=== PATIENT | male | born 2000 | race Caucasian/White ===

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

== ENCOUNTER 2023-03-30 13:22 | Inpatient (IN) ==
[2023-03-30 14:16] LABS: Basophils # (auto) 0.04 K/uL (0.00-0.20); Basophils % (auto) 0.3 %; Eosinophils # (auto) 0.03 K/uL (0.00-0.50); Eosinophils % (auto) 0.2 %; Hematocrit (blood only) 42.8 % (42.0-52.0); Hemoglobin 15.6 g/dl (14.0-18.0); Immature Granulocytes # (auto) 0.04 K/uL (0.01-0.20); Immature Granulocytes % (auto) 0.3 %; Lymphocytes # (auto) 1.94 K/uL (1.20-3.40); Lymphocytes % (auto) 15.3 %; Mean Corpuscular Hemoglobin 31.6 pg (25.0-34.0); Mean Corpuscular Hgb Conc 36.4 g/dL (32.0-36.0); Mean Corpuscular Volume 86.8 fL (80.0-100.0); Mean Platelet Volume 9.1 fL (9.4-12.4); Monocytes # (auto) 0.89 K/uL (0.11-0.59); Neutrophils # (auto) 9.72 K/uL (1.40-6.50); Neutrophils % (auto) 76.9 %; Platelet Count 317 K/uL (130-400); RDW Coefficient of Variation 12.3 % (11.5-14.5); RDW Standard Deviation 39.1 fL (36.4-46.3); Red Blood Count 4.93 M/uL (4.70-6.10); White Blood Count 12.66 K/ul (4.8-10.8)
--- NOTE | 2023-03-30 14:28 | Emergency Department Note ---
Impression & Plan Suicidal ideation ED Provider Note NAME: NAYLA BURGESS AGE: 22 SEX: M : 2000 ARRIVES VIA: Walk-In INFORMANT: Patient ED PROVIDER(S): Benitez Fernandez DO CHIEF COMPLAINT: Suicidal ideations HPI: Patient is a 22-year-old male who presents to the ER for suicidal thoughts. He notes that this has been going on and getting worse over the past several weeks. He notes he does not believe he can trust himself anymore. He thinks of suicide multiple times a day. He notes these are generally thoughts of opportunity in regards to grabbing a gun to shoot himself. When he sees a tall building he thinks of jumping off of it. He today has been thinking about walking in front of traffic. He discussed with his family and he was referred in. He denies any homicidal ideations or auditory hallucinations. No visual hallucinations. He feels hopeless. He does not feel as though anyone will miss him. Additional history provided by parents who are present at bedside who believe that he needs inpatient treatment. ADDITIONAL HISTORY OBTAINED: Per HPI Chronic Medical/Social Conditions Affecting Care: Per HPI PAST MEDICAL HISTORY:See Below PAST SURGICAL HISTORY:See Below FAMILY HISTORY:See Below SOCIAL HISTORY:See Below HOME MEDICATIONS:See Below ALLERGIES:See Below VITALS:See Below PHYSICAL EXAMINATION: GENERAL: Sitting up in bed, alert, well appearing, well nourished, no distress, non-toxic EYE EXAM: normal conjunctiva. PERRL and EOM's grossly intact. OROPHARYNX: mucous membranes are moist NECK: supple, no nuchal rigidity, no adenopathy, non-tender LUNGS: Clear to auscultation. Normal chest wall mechanics HEART: no murmurs, S1 normal and S2 normal ABDOMEN: abdomen soft, non-tender, normo-active bowel sounds, no masses, no rebound or guarding. UPPER EXTREMITIES: upper extremities are grossly normal. LOWER EXTREMITIES: No pitting edema. NEURO EXAM: Normal sensorium, cranial nerves II-XII grossly intact, normal speech, no gross weakness of arms, no gross weakness of legs. MEDICAL DECISION MAKING: Patient is a 22-year-old male who presents ER for above-stated complaint. Blood work was obtained and showed a mild leukocytosis of 12.6. No significant anemia. BMP along with LFTs bilirubin and TSH was unremarkable. UA was clean. Tox was negative with exception of marijuana. Alcohol negative. COVID- negative. Patient was discussed with our psychiatric rn intensive care unit. Seen and evaluated. Referred to 3 S. and patient was admitted to our psychiatric unit. Consults/Care Managements Discussions: Per MDM Triage Nursing notes reviewed. Limited review of prior medical records performed Vital Signs: reviewed and remarkable for no significant abnormalities Differential diagnosis: Mood disorder, infection, hypoglycemia, electrolyte abnormalities, cardiac sources, intracerebral event, toxicologic, trauma, neurologic, as well as other pathologies. ER treatment provided: See below Diagnostics interpreted by me include EKG and cardiac monitoring as listed below: -ECG: none -Laboratory studies:Interpreted by me as stated above in MDM and shown below. Imaging studies: Xrays: As interpreted by me:none CTs show: none Procedures:none Critical Care: None Past Med/Surg History Social History Smoking Status: Never smoker Feels Safe at Home: Yes Gender Identity: Male Allergies Allergies Allergy/AdvReac Type Severity Reaction Status Date / Time No Known Allergies Allergy Unverified 12/29/16 16:30 Home Meds Home Medications Medication Instructions Recorded Confirmed citalopram 40 mg tablet (Celexa) 40 mg PO DAILY 03/30/23 03/30/23 Results & Data (ED) Vital Signs Vital Signs - 24 hr 03/30/23 13:41 03/30/23 18:43 Temperature 36.6 C Temperature Source Temporal Artery Scan Pulse Rate 73 Respiratory Rate 20 Respiratory Effort / Characteristics Non-Labored Respiratory Depth Normal Blood Pressure 134/83 Blood Pressure Mean 100 Pulse Oximetry 98 Oxygen Delivery Method Room Air Room Air Sepsis Recent Fever Within 48 Hours No Sepsis New/Unexplained Change in Mental Status No Sepsis Action Taken by Nursing No Action Required Laboratory Data 03/30/23 14:00 03/30/23 14:00 Lab Results 03/30/23 03/30/23 03/30/23 Range/Units 13:50 14:00 14:05 WBC 12.66 H (4.8-10.8) K/ul RBC 4.93 (4.70-6.10) M/uL Hgb 15.6 (14.0-18.0) g/dl Hct 42.8 (42.0-52.0) % MCV 86.8 (80.0-100.0) fL MCH 31.6 (25.0-34.0) pg MCHC 36.4 H (32.0-36.0) g/dL RDW Std Deviation 39.1 (36.4-46.3) fL RDW Coeff of Krupa 12.3 (11.5-14.5) % Plt Count 317 (130-400) K/uL MPV 9.1 L (9.4-12.4) fL Immature Gran % (Auto) 0.3 % Neut % (Auto) 76.9 % Lymph % (Auto) 15.3 % [place] % (Auto) 7.0 % Eos % (Auto) 0.2 % Baso % (Auto) 0.3 % Neut # (Auto) 9.72 H (1.40-6.50) K/uL Lymph # (Auto) 1.94 (1.20-3.40) K/uL [place] # (Auto) 0.89 H (0.11-0.59) K/uL Eos # (Auto) 0.03 (0.00-0.50) K/uL Baso # (Auto) 0.04 (0.00-0.20) K/uL Immature Gran # (Auto) 0.04 (0.01-0.20) K/uL Sodium 139 (136-145) mmol/L Potassium 3.6 (3.5-5.1) mmol/L Chloride 104 (98-107) mmol/L Carbon Dioxide 27 (21-32) mmol/L Anion Gap 8 (3-11) BUN 11 (6-23) mg/dl Creatinine 0.83 (0.6-1.4) mg/dl Est Cr Clr Drug Dosing 133.5 ml/min Est GFR ( Amer) 146.8 ml/min Est GFR (Non-Af Amer) 126.7 ml/min BUN/Creatinine Ratio 13.3 (10-20) Glucose 91 (70-99(Fasting)) mg/dl Calcium 9.9 (8.6-10.3) mg/dl Total Bilirubin 0.9 (0.2-1.0) mg/dl AST 13 (13-39) U/L ALT 10 (7-52) U/L Alkaline Phosphatase 72 (34-104) U/L Total Protein 8.2 (6.0-8.3) gm/dl Albumin 5.1 H (3.4-5.0) gm/dl Globulin 3.1 (2.5-4.0) gm/dl Albumin/Globulin Ratio 1.6 (0.9-2) TSH 0.937 (0.300-4.500) uIu/ml Urine Color Yellow Urine Appearance Clear (Clear) Urine pH 5.5 (4.5-7.5) Ur Specific [place] 1.020 (1.000-1.030) Urine Protein Negative (Negative) Urine Glucose (UA) Negative (Negative) Urine Ketones Negative (Negative) Urine Blood Negative (Negative) Urine Nitrite Negative (Negative) Urine Bilirubin Negative (Negative) Urine Urobilinogen Negative (Negative) Ur Leukocyte Esterase Negative (Negative) Salicylates < 3.0 L (3.0-30) mg/dl Urine Opiates Screen Neg (Neg) Ur Methadone, Qual Neg (Neg) Acetaminophen < 3 L (10-30) ug/ml Urine Barbiturates Neg (Neg) Ur Phencyclidine (PCP) Neg (Neg) U Amphetamin/Meth Scrn Neg (Neg) MDMA (Ecstasy) Screen Neg (Neg) U Benzodiazepines Scrn Neg (Neg) Ur Cocaine Metabolite Neg (Neg) U Marijuana (THC) Screen Pos H (Neg) Ethyl Alcohol mg/dL < 10.0 (<10.0) mg/dl SARS-CoV-2, RNA, NAAT NEGATIVE (NEGATIVE) Discharge Plan Visit Data Chief Complaint: Mental Health Evaluation Stated Complaint: SUICIDAL THOUGHTS ED Provider: Benitez Fernandez Discharge Problem: Suicidal ideation Discharge Instructions Interventions: ED Discharge Assessment Last Done: 03/30/23 18:43 Forms Stand Alone Forms: [facility], Suicide Prevention Resources Prescriptions Prescriptions: No Action citalopram [Celexa] 40 mg tablet 40 mg PO DAILY Referrals Referrals: Brayan Blackwood, [Primary Care Provider] -
[2023-03-30 14:34] LABS: Acetaminophen < 3 ug/ml (10-30); Salicylate < 3.0 mg/dl (3.0-30)
[2023-03-30 14:37] LABS: Appearance Urine Clear (Clear); Bilirubin Urine Negative (Negative); Blood Urine Negative (Negative); Color Urine Yellow; Glucose Urine UA Negative (Negative); Ketones Urine Negative (Negative); Leukocyte Esterase Urine Negative (Negative); Nitrite Urine Negative (Negative); Protein Urine Negative (Negative); Urobilinogen Urine Negative (Negative); pH Urine 5.5 (4.5-7.5)
[2023-03-30 14:38] LABS: Amphetamines+Metham, Urine Neg (Neg); Barbiturates, Urine Neg (Neg); Benzodiazepine, Urine Neg (Neg); Cocaine, Urine Neg (Neg); MDMA (Ecstacy), Urine Neg (Neg); Marijuana, Urine Pos (Neg); Methadone, Urine Neg (Neg); Opiate, Urine Neg (Neg); Phencyclidine, Urine Neg (Neg)
[2023-03-30 14:38] LABS: Albumin Globulin Ratio 1.6 (0.9-2); Albumin Level 5.1 gm/dl (3.4-5.0); BUN Creatinine Ratio 13.3 (10-20); Bilirubin,Total 0.9 mg/dl (0.2-1.0); Calcium 9.9 mg/dl (8.6-10.3); Creatinine Clr Calc Pharmacy 133.5 ml/min; Est GFR (African American) 146.8 ml/min; Est GFR (Non-African American) 126.7 ml/min; Globulin 3.1 gm/dl (2.5-4.0); Potassium 3.6 mmol/L (3.5-5.1); Total Protein 8.2 gm/dl (6.0-8.3)
[2023-03-30 14:52] LABS: Thyroid Stimulating Hormone 0.937 uIu/ml (0.300-4.500)
[2023-03-30] MEDS ORDERED: SODIUM CHLORIDE 0.65% NA SOLN 45 ML (OCEAN) PRN (18:53)
[2023-03-30] MEDS ORDERED: hydrOXYzine HCl 25 MG TAB PO PRN ×2 (18:53)
[2023-03-30] MEDS ORDERED: MAGNESIUM HYDROXIDE SUSP 30 ML UDC PO PRN (18:53)
[2023-03-30] MEDS ORDERED: BISMUTH SUBSALICYLATE LIQD 236 ML PO PRN (18:53)
[2023-03-30] MEDS ORDERED: ACETAMINOPHEN 325 MG TAB PO PRN (18:53)
[2023-03-30] MEDS ORDERED: ALUMINUM/MAGNESIUM SUSP 30 ML UDC PO PRN (18:53)
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
[2023-03-31] MEDS ORDERED: traZODone HCL 50 MG TAB PO PRN (11:37)
[2023-03-31] MEDS: buPROPion XL 150 MG TABCR PO SCH (11:50)
[2023-03-31 12:38] LABS: Folate (Folic Acid),Ser orPlas > 22.30 ng/ml (>5.38)
[2023-03-31 12:39] LABS: Vitamin B12 587 pg/ml (180-914)
[2023-03-31] MEDS ORDERED: traZODone HCL 50 MG TAB PO SCH (22:00)
[2023-04-01] MEDS: buPROPion XL 150 MG TABCR PO SCH (09:05)
--- NOTE | 2023-04-01 09:22 | Psychiatric Progress Note ---
Date of Service April 01, 2023 Impression / Recommendations Impression 22 y/o M with history of depression and ADHD. Currently he meets diagnostic criteria for recurrent major depression, moderate. He is psychiatrically unstable, with recurrent intrusive suicidal thoughts, and requires psychiatric admission for safety, stabilization, and medication adjustment. 03/31/2023: All of the additional labs ordered yesterday (vitamin B12 level, folic acid level, 25-OH vitamin D level, ESR) were within normal limits. Slept nearly 9 hours after having been given trazodone 50 mg at HS, but says he woke several times. He was able to get back to sleep faster than before. Discussed increasing HS trazodone in an attempt to eliminate the middle awakenings. Pt attributes no adverse effects to bupropion thus far, having now received 2 doses. Discussed increasing to 300 mg tomorrow, which he'd like to do. 03/30/2023: Pt has been on an unsatisfactory trial in low-dose citalopram 20 mg daily that was recently increased to 40 mg daily (though he says he hasn't actually started the higher dose yet). He did not like that stimulants used for ADHD made him feel wound up. Discussed possibility that bupropion might help with ADHD symptoms and that it might help more with anhedonia and amotivation than an SSRI. Risks and benefits of, and alternatives to, the use of bupropion (Wellbutrin) XL for Major Depression and ADHD symptoms were reviewed. This discussion included but was not limited to issues known potentially to be associated with use of such medication, especially at high doses or with longer use, including irritability, insomnia, sedation, weight gain, GI side effects. Discussed the known elevated risk of seizures at doses of 600 mg or more and the consequent need to minimize the chance of double-dosing, such as by use of a pill reminder. The patient agreed to start a trial of bupropion XL. Discussed use of trazodone for insomnia given his feeling increasingly bothered by this. Risks and benefits of, and alternatives to, the use of trazodone for insomnia symptoms were reviewed. This discussion included but was not limited to issues known potentially to be associated with use of such medication, especially at high doses or with longer use, including daytime, sedation, GI side effects, or headaches. Discussed the known rare risk of priapism. The patient agreed to start a trial of trazodone. (1) Moderately severe recurrent major depression: (2) ADHD (attention deficit hyperactivity disorder): Plan 03/31/2023: * increase bupropion XL to 300 mg tomorrow * increase trazodone to 100 mg QHS 03/30/2023: The patient was admitted to the [facility] ([facility]) on q15 minute checks (behavioral with suicide precautions) for safety.The patient will participate in group, recreational, and milieu therapies and will be offered additional individual and family sessions as clinically appropriate. * stop citalopram (taper not likely necessary given low dose) * start bupropion XL 150 mg QAM * start trazodone 50 mg QHS with repeat of 50 mg if still awake within 1 hour * In addition to the screening labs ordered in the ED, will order vitamin B12 level, folic acid level, 25-OH vitamin D level, ESR to rule out conditions more pertinent to psychiatric symptoms. Inventory Assets Strengths: has local supports, voluntary, good insight, intelligent, employed Needs: safety and stabilization, medication adjustment, additional coping skills, increased outpatient services Suicide Risk Level Suicide Risk Level: High-Moderate (q15 min suicide checks) (intrusive suicidal thoughts, feels safe here) Risk Factors Assessment Male: Yes : Yes Do You Have Access To A Gun?: No Health Problems: No Mental Health Diagnoses: Yes Substance Use Disorders: No Previous Attempt: No Previous Psychiatric Hospitalization: No Hopelessness: Yes Protective Factors Assessment Restoration Beliefs: No : No Responsible for Young Children: No Employed: Yes (Fulltime; [employer]) Good Rapport with Provider: Yes Interval History Identifying Information NAYLA BURGESS is a 22-year-old M who currently lives in [facility] in a house with his parents and 6 siblings, has a history of depression and ADHD, and was admitted on 03/30/23 18:50 on a 201 voluntary commitment for suicidal thoughts. Chief Complaint "Still having dark thoughts". Review of Systems Sleep Information Total Hours of Sleep: 8.45 Sleep Comments: Pt given scheduled Trazadone 50mg at HS Meal Information Percent Meal Consumed - Breakfast: 100 Percent Meal Consumed - Lunch: 95 Percent Meal Consumed - Dinner: 15 Subjective Subjective The patient was seen and assessed and interval progress reviewed in a multidisciplinary team meeting with the treatment team. For details, see the "Impression" section. Overall I spent a total of 39 minutes for this inpatient follow-up including r eview of chart records, review of test results, direct evaluation of the patient [id number], counseling the patient, medication education with the patient, risk assessment, discussion during interdisciplinary treatment rounds, and documentation in the electronic health record. Physical Exam Psychiatric Orientation: alert, oriented to person, oriented to place, oriented to time and cooperative Apperance: appropriately dressed, appropriately groomed and appeared stated age Eye Contact: + fair eye contact Speech: normal rate/rhythm/volume of speech Affect: + constricted affect Mood: + depressed mood Thought Process: linear/logical thought process and thought association intact Thought Content: reality based without delusions, + hopelessness and + self deprecation Suicidal Thoughts: denies suicidal plan and denies suicidal intent; + reports suicidal thoughts Homicidal Thoughts: denies homicidal thoughts Hallucinations: no auditory hallucinations and no visual hallucinations Cognition: recent memory grossly intact, remote memory grossly intact, attention grossly intact and language grossly intact Estimated Intelligence: + above average estimated intelligence Insight: + fair insight Judgment: + fair judgement Vital Signs (Past 24 Hours) Last Vital Signs Temp 36.9 C 04/01/23 06:32 Pulse 58 L 04/01/23 06:32 Resp 16 04/01/23 06:32 BP 101/66 04/01/23 06:32 Pulse Ox 98 03/30/23 13:41 O2 Del Method Room Air 03/30/23 18:43 Results & Data ([facility]) Laboratory Results Laboratory Results - last 24 hr 03/31/23 11:41 ESR 2 Vitamin B12 587 25-OH Vitamin D Total 20.5 Folate > 22.30 Current Inpatient Medications Current Inpatient Medications: Current Inpatient Medications Acetaminophen (Acetaminophen 325 Mg Tab) 650 mg PO Q4H PRN PRN Reason: Headache or Minor Fever Stop: 04/29/23 18:52 Al Hydrox/Mg Hydrox/Simethicone (Aluminum/Magnesium Susp 30 Ml Udc) 30 ml PO Q4H PRN PRN Reason: GI Upset Stop: 04/29/23 18:52 Bismuth Subsalicylate (Bismuth Subsalicylate Liqd 236 Ml) 15 ml PO PRN PRN PRN Reason: Loose Stool Stop: 04/29/23 18:52 Bupropion HCl (Bupropion Xl 150 Mg Tabcr) 150 mg PO QAM CORRINA Stop: 04/30/23 11:59 Last Admin: 04/01/23 09:05 Dose: 150 mg Hydroxyzine HCl (Hydroxyzine Hcl 25 Mg Tab) 50 mg PO HSZ PRN PRN Reason: Insomnia Stop: 04/29/23 18:52 Hydroxyzine HCl (Hydroxyzine Hcl 25 Mg Tab) 25 mg PO Q4H PRN PRN Reason: Anxiety Stop: 04/29/23 18:52 Last Admin: 03/31/23 17:41 Dose: 25 mg Magnesium Hydroxide (Magnesium Hydroxide Susp 30 Ml Udc) 30 ml PO DAILY PRN PRN Reason: Constipation Stop: 04/29/23 18:52 Sodium Chloride (Sodium Chloride 0.65% Na Soln 45 Ml ([place])) 1 - 2 sprays NA PRN PRN PRN Reason: Nasal Dryness/Congestion Stop: 04/29/23 18:52 Trazodone HCl (Trazodone Hcl 50 Mg Tab) 50 mg PO HS CORRINA Stop: 04/30/23 21:59 Last Admin: 03/31/23 20:08 Dose: 50 mg Trazodone HCl (Trazodone Hcl 50 Mg Tab) 50 mg PO HS PRN PRN Reason: if still awake within 1 hour of initial dose Stop: 04/30/23 11:36 Mental Health & Subst Abuse Tx Therapist Name of Therapist: None Cylinder Die Machine Helper Name of Cylinder Die Machine Helper: None Post Discharge Appointments Primary Care Physician Name Of Family Doctor/PCP: Dr Blackwood; [facility] in [place] (2) ADHD (attention deficit hyperactivity disorder) Attention deficit-hyperactivity disorder type: combined inattentive- hyperactive Qualified Code(s): 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
[2023-04-01] MEDS ORDERED: traZODone HCL 100 MG TAB PO SCH (22:00)
[2023-04-02] MEDS: buPROPion XL 300 MG TABCR PO SCH (08:39)
--- NOTE | 2023-04-02 12:22 | Psychiatric Progress Note ---
Date of Service April 02, 2023 Impression / Recommendations Impression 22 y/o M with history of depression and ADHD. Currently he meets diagnostic criteria for recurrent major depression, moderate. He is psychiatrically unstable, with recurrent intrusive suicidal thoughts, and requires psychiatric admission for safety, stabilization, and medication adjustment. 04/02/2023: Presents with brighter affect, reports that his "mood is definitely better" and that he's "had no suicidal thoughts since late Friday night". Reports fewer middle awakenings last night, but says it took longer to fall back asleep. He would like to try increasing trazodone with a goal of eliminating the middle awakenings. Reports no worsening and attributes no side effects to the increased bupropion. Says he's "been able to focus much better" and attributes this to the bupropion. Speaks of his plan to move out of his crowded family home (where he has a small room carved out of the poorly-heated basement) to an apartment with a co-worker in about 3 weeks. The coworker is "officially" his supervisor [employer], but he's been trained to fill in for her if she's absent. They both work the same shift so could carpool. The apartment "is a 3 bedroom, 2 bath" but one of the bedrooms is a loft area that he figures they could use as shared space. 04/01/2023: All of the additional labs ordered yesterday (vitamin B12 level, folic acid level, 25-OH vitamin D level, ESR) were within normal limits. Slept nearly 9 hours after having been given trazodone 50 mg at HS, but says he woke several times. He was able to get back to sleep faster than before. Discussed increasing HS trazodone in an attempt to eliminate the middle awakenings. Pt attributes no adverse effects to bupropion thus far, having now received 2 doses. Discussed increasing to 300 mg tomorrow, which he'd like to do. 03/31/2023: Pt has been on an unsatisfactory trial in low-dose citalopram 20 mg daily that was recently increased to 40 mg daily (though he says he hasn't actually started the higher dose yet). He did not like that stimulants used for ADHD made him feel wound up. Discussed possibility that bupropion might help with ADHD symptoms and that it might help more with anhedonia and amotivation than an SSRI. Risks and benefits of, and alternatives to, the use of bupropion (Wellbutrin) XL for Major Depression and ADHD symptoms were reviewed. This discussion included but was not limited to issues known potentially to be associated with use of such medication, especially at high doses or with longer use, including irritability, insomnia, sedation, weight gain, GI side effects. Discussed the known elevated risk of seizures at doses of 600 mg or more and the consequent need to minimize the chance of double-dosing, such as by use of a pill reminder. The patient agreed to start a trial of bupropion XL. Discussed use of trazodone for insomnia given his feeling increasingly bothered by this. Risks and benefits of, and alternatives to, the use of trazodone for insomnia symptoms were reviewed. This discussion included but was not limited to issues known potentially to be associated with use of such medication, especially at high doses or with longer use, including daytime, sedation, GI side effects, or headaches. Discussed the known rare risk of priapism. The patient agreed to start a trial of trazodone. (1) Moderately severe recurrent major depression: (2) ADHD (attention deficit hyperactivity disorder): Plan 04/02/2023: * continue bupropion XL 300 mg daily * increase trazodone to 150 mg QHS 04/01/2023: * increase bupropion XL to 300 mg tomorrow * increase trazodone to 100 mg QHS 03/31/2023: The patient was admitted to the [facility]) on q15 minute checks (behavioral with suicide precautions) for safety.The patient will participate in group, recreational, and milieu therapies and will be offered additional individual and family sessions as clinically appropriate. * stop citalopram (taper not likely necessary given low dose) * start bupropion XL 150 mg QAM * start trazodone 50 mg QHS with repeat of 50 mg if still awake within 1 hour * In addition to the screening labs ordered in the ED, will order vitamin B12 level, folic acid level, 25-OH vitamin D level, ESR to rule out conditions more pertinent to psychiatric symptoms. Inventory Assets Strengths: has local supports, voluntary, good insight, intelligent, employed Needs: safety and stabilization, medication adjustment, additional coping skills, increased outpatient services Suicide Risk Level Suicide Risk Level: High-Moderate (q15 min suicide checks) (intrusive suicidal thoughts, feels safe here) Risk Factors Assessment Male: Yes : Yes Do You Have Access To A Gun?: No Health Problems: No Mental Health Diagnoses: Yes Substance Use Disorders: No Previous Attempt: No Previous Psychiatric Hospitalization: No Hopelessness: Yes Protective Factors Assessment Restorationism Beliefs: No : No Responsible for Young Children: No Employed: Yes (Fulltime; [employer] Good Rapport with Provider: Yes Interval History Identifying Information NAYLA BURGESS is a 22-year-old M who currently lives in [facility] in a house with his parents and 6 siblings, has a history of depression and ADHD, and was admitted on 03/30/23 18:50 on a 201 voluntary commitment for suicidal thoughts. Chief Complaint "I'm definitely better". Review of Systems Sleep Information Total Hours of Sleep: 7.25 Sleep Comments: Pt given scheduled Trazodone 100mg at HS Meal Information Percent Meal Consumed - Breakfast: 100 Percent Meal Consumed - Lunch: 100 Percent Meal Consumed - Dinner: 100 Subjective Subjective The patient was seen and assessed and interval progress reviewed in a multidisciplinary team meeting with the treatment team. For details, see the "Impression" section. Overall I spent a total of 36 minutes for this inpatient follow-up including review of chart records, direct evaluation of the patient [id number], counseling the patient, reconciling and ordering medication, medication education with the patient, risk assessment, discussion during interdisciplinary treatment rounds, and documentation in the electronic health record. Physical Exam Psychiatric Orientation: alert, oriented to person, oriented to place, oriented to time and cooperative Apperance: appropriately dressed, appropriately groomed and appeared stated age Eye Contact: + fair eye contact Speech: normal rate/rhythm/volume of speech Affect: + constricted affect Mood: + dysphoric mood Thought Process: linear/logical thought process and thought association intact Thought Content: reality based without delusions and + self deprecation Suicidal Thoughts: denies suicidal thoughts, denies suicidal plan and denies suicidal intent Homicidal Thoughts: denies homicidal thoughts Hallucinations: no auditory hallucinations and no visual hallucinations Cognition: recent memory grossly intact, remote memory grossly intact, attention grossly intact and language grossly intact Estimated Intelligence: + above average estimated intelligence Insight: + fair insight Judgment: + fair judgement Vital Signs (Past 24 Hours) Last Vital Signs Temp 36.4 C 04/02/23 06:00 Pulse 80 04/02/23 06:27 Resp 16 04/02/23 06:00 BP 113/63 04/02/23 06:27 Pulse Ox 98 03/30/23 13:41 O2 Del Method Room Air 03/30/23 18:43 Results & Data ([facility]) Current Inpatient Medications Current Inpatient Medications: Current Inpatient Medications Acetaminophen (Acetaminophen 325 Mg Tab) 650 mg PO Q4H PRN PRN Reason: Headache or Minor Fever Stop: 04/29/23 18:52 Al Hydrox/Mg Hydrox/Simethicone (Aluminum/Magnesium Susp 30 Ml Udc) 30 ml PO Q4H PRN PRN Reason: GI Upset Stop: 04/29/23 18:52 Bismuth Subsalicylate (Bismuth Subsalicylate Liqd 236 Ml) 15 ml PO PRN PRN PRN Reason: Loose Stool Stop: 04/29/23 18:52 Bupropion HCl (Bupropion Xl 300 Mg Tabcr) 300 mg PO QAM CORRINA Stop: 05/02/23 08:59 Last Admin: 04/02/23 08:39 Dose: 300 mg Hydroxyzine HCl (Hydroxyzine Hcl 25 Mg Tab) 50 mg PO HSZ PRN PRN Reason: Insomnia Stop: 04/29/23 18:52 Hydroxyzine HCl (Hydroxyzine Hcl 25 Mg Tab) 25 mg PO Q4H PRN PRN Reason: Anxiety Stop: 04/29/23 18:52 Last Admin: 03/31/23 17:41 Dose: 25 mg Magnesium Hydroxide (Magnesium Hydroxide Susp 30 Ml Udc) 30 ml PO DAILY PRN PRN Reason: Constipation Stop: 04/29/23 18:52 Sodium Chloride (Sodium Chloride 0.65% Na Soln 45 Ml ([place])) 1 - 2 sprays NA PRN PRN PRN Reason: Nasal Dryness/Congestion Stop: 04/29/23 18:52 Trazodone HCl (Trazodone Hcl 50 Mg Tab) 50 mg PO HS PRN PRN Reason: if still awake within 1 hour of initial dose Stop: 04/30/23 11:36 Trazodone HCl (Trazodone Hcl 50 Mg Tab) 150 mg PO HS CORRINA Stop: 05/02/23 21:59 Mental Health & Subst Abuse Tx Therapist Name of Therapist: None Senior Counsel Commercial Name of Senior Counsel Commercial: None Post Discharge Appointments Primary Care Physician Name Of Family Doctor/PCP: Dr Blackwood; [facility] [place] (2) ADHD (attention deficit hyperactivity disorder) Attention deficit-hyperactivity disorder type: combined inattentive- hyperactive Qualified Code(s): 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
[2023-04-02] MEDS: traZODone HCL 50 MG TAB PO SCH (20:18)
[2023-04-03] MEDS: buPROPion XL 300 MG TABCR PO SCH (08:41)
--- NOTE | 2023-04-03 09:17 | Psychiatric Progress Note ---
Date of Service April 03, 2023 Impression / Recommendations Impression 22 y/o M with history of depression and ADHD. Currently he meets diagnostic criteria for recurrent major depression, moderate. He is psychiatrically unstable, with recurrent intrusive suicidal thoughts, and requires psychiatric admission for safety, stabilization, and medication adjustment. 04/03/2023: Pt is not sure the 150 mg trazodone was any more helpful, but notes he got a new roommate in the middle of the night. He says his mood remains "pretty good". Continues to report no suicidal thoughts. 04/02/2023: Presents with brighter affect, reports that his "mood is definitely better" and that he's "had no suicidal thoughts since late Friday night". Reports fewer middle awakenings last night, but says it took longer to fall back asleep. He would like to try increasing trazodone with a goal of eliminating the middle awakenings. Reports no worsening and attributes no side effects to the increased bupropion. Says he's "been able to focus much better" and attributes this to the bupropion. Speaks of his plan to move out of his crowded family home (where he has a small room carved out of the poorly-heated basement) to an apartment with a co-worker in about 3 weeks. The coworker is "officially" his smoke control supervisor, but he's been trained to fill in for her if she's absent. They both work the same shift so could carpool. The apartment "is a 3 bedroom, 2 bath" but one of the bedrooms is a loft area that he figures they could use as shared space. 04/01/2023: All of the additional labs ordered yesterday (vitamin B12 level, folic acid level, 25-OH vitamin D level, ESR) were within normal limits. Slept nearly 9 hours after having been given trazodone 50 mg at HS, but says he woke several times. He was able to get back to sleep faster than before. Discussed increasing HS trazodone in an attempt to eliminate the middle awakenings. Pt attributes no adverse effects to bupropion thus far, having now received 2 doses. Discussed increasing to 300 mg tomorrow, which he'd like to do. 03/31/2023: Pt has been on an unsatisfactory trial in low-dose citalopram 20 mg daily that was recently increased to 40 mg daily (though he says he hasn't actually started the higher dose yet). He did not like that stimulants used for ADHD made him feel wound up. Discussed possibility that bupropion might help with ADHD symptoms and that it might help more with anhedonia and amotivation than an SSRI. Risks and benefits of, and alternatives to, the use of bupropion (Wellbutrin) XL for Major Depression and ADHD symptoms were reviewed. This discussion included but was not limited to issues known potentially to be associated with use of such medication, especially at high doses or with longer use, including irritability, insomnia, sedation, weight gain, GI side effects. Discussed the known elevated risk of seizures at doses of 600 mg or more and the consequent need to minimize the chance of double-dosing, such as by use of a pill reminder. The patient agreed to start a trial of bupropion XL. Discussed use of trazodone for insomnia given his feeling increasingly bothered by this. Risks and benefits of, and alternatives to, the use of trazodone for insomnia symptoms were reviewed. This discussion included but was not limited to issues known potentially to be associated with use of such medication, especially at high doses or with longer use, including daytime, sedation, GI side effects, or headaches. Discussed the known rare risk of priapism. The patient agreed to start a trial of trazodone. (1) Moderately severe recurrent major depression: (2) ADHD (attention deficit hyperactivity disorder): Plan 04/03/2023: * continue bupropion XL 300 mg daily * continue trazodone to 150 mg QHS * anticipate discharge tomorrow 04/02/2023: * continue bupropion XL 300 mg daily * increase trazodone to 150 mg QHS 04/01/2023: * increase bupropion XL to 300 mg tomorrow * increase trazodone to 100 mg QHS 03/31/2023: The patient was admitted to the [facility]) on q15 minute checks (behavioral with suicide precautions) for safety.The patient will participate in group, recreational, and milieu therapies and will be offered additional individual and family sessions as clinically appropriate. * stop citalopram (taper not likely necessary given low dose) * start bupropion XL 150 mg QAM * start trazodone 50 mg QHS with repeat of 50 mg if still awake within 1 hour * In addition to the screening labs ordered in the ED, will order vitamin B12 level, folic acid level, 25-OH vitamin D level, ESR to rule out conditions more pertinent to psychiatric symptoms. Inventory Assets Strengths: has local supports, voluntary, good insight, intelligent, employed Needs: safety and stabilization, medication adjustment, additional coping skills, increased outpatient services Suicide Risk Level Suicide Risk Level: High-Moderate (q15 min suicide checks) (intrusive suicidal thoughts, feels safe here) Risk Factors Assessment Male: Yes : Yes Do You Have Access To A Gun?: No Health Problems: No Mental Health Diagnoses: Yes Substance Use Disorders: No Previous Attempt: No Previous Psychiatric Hospitalization: No Hopelessness: Yes Protective Factors Assessment Jehovah'S Witness Beliefs: No : No Responsible for Young Children: No Employed: Yes (Fulltime; [employer]) Good Rapport with Provider: Yes Interval History Identifying Information NAYLA BURGESS is a 22-year-old M who currently lives in [facility] [address] in a house with his parents and 6 siblings, has a history of depression and ADHD, and was admitted on 03/30/23 18:50 on a 201 voluntary commitment for suicidal thoughts. Chief Complaint "Pretty good". Review of Systems Sleep Information Total Hours of Sleep: 7.5 Sleep Comments: Pt receives Trazodone 150mg HS Meal Information Percent Meal Consumed - Breakfast: 100 Percent Meal Consumed - Lunch: 90 Percent Meal Consumed - Dinner: 100 Subjective Subjective The patient was seen and assessed and interval progress reviewed in a multidisciplinary team meeting with the treatment team. For details, see the "Impression" section. Overall I spent a total of 38 minutes for this inpatient follow-up including review of chart records, direct evaluation of the patient [id number], counseling the patient, medication education with the patient, risk assessment, discussion during interdisciplinary treatment rounds, and documentation in the electronic health record. Physical Exam Psychiatric Orientation: alert, oriented to person, oriented to place, oriented to time and cooperative Apperance: appropriately dressed, appropriately groomed and appeared stated age Eye Contact: + fair eye contact Speech: normal rate/rhythm/volume of speech Affect: + constricted affect Mood: + dysphoric mood Thought Process: linear/logical thought process and thought association intact Thought Content: reality based without delusions and + self deprecation Suicidal Thoughts: denies suicidal thoughts, denies suicidal plan and denies suicidal intent Homicidal Thoughts: denies homicidal thoughts Hallucinations: no auditory hallucinations and no visual hallucinations Cognition: recent memory grossly intact, remote memory grossly intact, attention grossly intact and language grossly intact Estimated Intelligence: + above average estimated intelligence Insight: + fair insight Judgment: + fair judgement Vital Signs (Past 24 Hours) Last Vital Signs Temp 35.9 C L 04/03/23 06:00 Pulse 94 H 04/03/23 06:12 Resp 16 04/03/23 06:00 BP 108/66 04/03/23 06:12 Pulse Ox 98 03/30/23 13:41 O2 Del Method Room Air 03/30/23 18:43 Results & Data ([facility]) Current Inpatient Medications Current Inpatient Medications: Current Inpatient Medications Acetaminophen (Acetaminophen 325 Mg Tab) 650 mg PO Q4H PRN PRN Reason: Headache or Minor Fever Stop: 04/29/23 18:52 Al Hydrox/Mg Hydrox/Simethicone (Aluminum/Magnesium Susp 30 Ml Udc) 30 ml PO Q4H PRN PRN Reason: GI Upset Stop: 04/29/23 18:52 Bismuth Subsalicylate (Bismuth Subsalicylate Liqd 236 Ml) 15 ml PO PRN PRN PRN Reason: Loose Stool Stop: 04/29/23 18:52 Bupropion HCl (Bupropion Xl 300 Mg Tabcr) 300 mg PO QAM CORRINA Stop: 05/02/23 08:59 Last Admin: 04/03/23 08:41 Dose: 300 mg Hydroxyzine HCl (Hydroxyzine Hcl 25 Mg Tab) 50 mg PO HSZ PRN PRN Reason: Insomnia Stop: 04/29/23 18:52 Hydroxyzine HCl (Hydroxyzine Hcl 25 Mg Tab) 25 mg PO Q4H PRN PRN Reason: Anxiety Stop: 04/29/23 18:52 Last Admin: 03/31/23 17:41 Dose: 25 mg Magnesium Hydroxide (Magnesium Hydroxide Susp 30 Ml Udc) 30 ml PO DAILY PRN PRN Reason: Constipation Stop: 04/29/23 18:52 Sodium Chloride (Sodium Chloride 0.65% Na Soln 45 Ml ([place])) 1 - 2 sprays NA PRN PRN PRN Reason: Nasal Dryness/Congestion Stop: 04/29/23 18:52 Trazodone HCl (Trazodone Hcl 50 Mg Tab) 50 mg PO HS PRN PRN Reason: if still awake within 1 hour of initial dose Stop: 04/30/23 11:36 Trazodone HCl (Trazodone Hcl 50 Mg Tab) 150 mg PO HS CORRINA Stop: 05/02/23 21:59 Last Admin: 04/02/23 20:18 Dose: 150 mg Mental Health & Subst Abuse Tx Therapist Name of Therapist: None Sales Clerk Food Name of Sales Clerk Food: None Post Discharge Appointments Primary Care Physician Name Of Family Doctor/PCP: Dr Blackwood; [address] [facility] [place] (2) ADHD (attention deficit hyperactivity disorder) Attention deficit-hyperactivity disorder type: combined inattentive- hyperactive Qualified Code(s): 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
[2023-04-03 20:42] LABS: Marijuana Quant, GCMS Urine 1135 ng/mL (<5)
[2023-04-03] MEDS: traZODone HCL 50 MG TAB PO SCH (22:06)
[2023-04-04] MEDS: buPROPion XL 300 MG TABCR PO SCH (08:54)
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
== END 2023-04-04 11:26 | disposition home or self-care (01) | DRG 885 ==
LOC: ED 13:22 → 3S 18:43
DX: Z81.8 Family history of other mental and behavioral disorders; R45.851 Suicidal ideations; F90.2 Attention-deficit hyperactivity disorder, combined type; F33.1 Major depressive disorder, recurrent, moderate

== ENCOUNTER 2023-05-21 12:10 | Inpatient (IN) ==
--- NOTE | 2023-05-21 12:33 | Emergency Department Note ---
Impression & Plan Suicidal thoughts ADMIT ED Provider Note HPI: History obtained from patient The patient is a 22-year-old male with history of anxiety/depression, ADHD, presents the emergency department with a chief complaint of suicidal thoughts. Patient states lately "I do not care about my life at all". Patient denies any plan to harm himself and denies any suicide attempts but states he is having increasing thoughts of self-harm. Patient states he was previously admitted to behavioral health earlier this year and he thought that he needed the same again secondary to the symptoms. Patient denies any recent alcohol or drug use, on arrival here to the ED the patient is hemodynamically stable, he is calm and cooperative on my exam. ROS: - Per HPI *Outpatient medications and allergy history reviewed. PE: General: Alert HEENT: Normocephalic, trachea midline Eyes: Extraocular eye movement is intact, no scleral erythema Pulmonary: Clear to auscultation bilaterally, no wheezing Cardio: Regular rate and rhythm GI: Abdomen is soft to palpation : No suprapubic tenderness MSK: No evidence of trauma or malformation of the extremities, no edema Skin: No evidence of rash Neuro: Alert, no focal deficits Psychiatric: Cooperative Medical Decision Making: Medical screening was initiated for the patient's complaint of suicidal thoughts. Lab work shows no leukocytosis, hemoglobin is normal, platelet count is normal, CMP does not show any critical findings. No critical electrolyte abnormalities are noted, TSH is normal. Urinalysis shows 1+ ketones but otherwise no evidence of any abnormalities. Drug screen is positive only for marijuana. COVID testing is negative. Patient was medically cleared for assessment, he was assessed for inpatient psychiatric care by the behavioral health unit here [facility] given his suicidal thoughts. He did tell case management that he did have a plan of either jumping into traffic or possibly obtaining a gun to kill himself. He was accepted for inpatient care. 201 was signed by myself. Patient was taken for admission to the BHU in stable condition. Consultants/Discussions held with other healthcare providers: -Case Management, Zeny Adhikari Diagnosis: 1. Suicidal thoughts, acute Disposition: 201 Admission to 3 S. Andrew Yañez DO Emergency Medicine Past Med/Surg History Medical History (Updated 05/21/23 @ 16:58 by Andrew Yañez DO) ADHD (attention deficit hyperactivity disorder) Suicidal ideation Moderately severe recurrent major depression Social History Smoking Status: Current some day smoker Preferred Language: Lithuanian Communication Ability: Effective Residential Roofer Helper Required: No Beliefs That Will Affect Care: None Feels Safe at Home: Yes Gender Identity: Male Assistive Devices: None Allergies Allergies Allergy/AdvReac Type Severity Reaction Status Date / Time No Known Allergies Allergy Unverified 12/29/16 16:30 Home Meds Home Medications Medication Instructions Recorded Confirmed bupropion HCl 300 mg 24 hr tablet, mg PO 05/21/23 extended release citalopram 20 mg tablet mg 05/21/23 citalopram 40 mg tablet mg 05/21/23 dextroamphetamine-amphetamine ER PO 05/21/23 15 mg 24hr capsule,extend release (Adderall XR) methylphenidate HCl 18 mg mg PO 05/21/23 tablet,extended release 24 hr (Concerta) trazodone 50 mg tablet mg 05/21/23 Results & Data (ED) Vital Signs Vital Signs - 24 hr 05/21/23 12:10 05/21/23 12:14 05/21/23 14:32 Temperature 36.6 C Temperature Source Temporal Artery Scan Pulse Rate 79 Pulse Rate [Finger] 76 Respiratory Rate 20 18 Respiratory Effort / Characteristics Non-Labored Spontaneous Non-Labored Spontaneous Non-Labored Spontaneous Respiratory Depth Normal Normal Normal Respiratory Pattern Regular Blood Pressure 137/72 Blood Pressure [Right Arm] 123/66 Blood Pressure Mean 93 Blood Pressure Mean [Right Arm] 85 Blood Pressure Position [Right Arm] Sitting Pulse Oximetry 98 99 Oxygen Delivery Method Room Air Room Air Sepsis Recent Fever Within 48 Hours No Sepsis New/Unexplained Change in Mental Status No Sepsis Action Taken by Nursing No Action Required Laboratory Data 05/21/23 12:32 05/21/23 12:32 Lab Results 05/21/23 05/21/23 Range/Units 12:32 14:30 WBC 8.17 (4.8-10.8) K/ul RBC 4.74 (4.70-6.10) M/uL Hgb 15.1 (14.0-18.0) g/dl Hct 40.6 L (42.0-52.0) % MCV 85.7 (80.0-100.0) fL MCH 31.9 (25.0-34.0) pg MCHC 37.2 H (32.0-36.0) g/dL RDW Std Deviation 36.9 (36.4-46.3) fL RDW Coeff of Krupa 11.8 (11.5-14.5) % Plt Count 327 (130-400) K/uL MPV 9.1 L (9.4-12.4) fL Immature Gran % (Auto) 0.2 % Neut % (Auto) 67.8 % Lymph % (Auto) 20.2 % Greenlee % (Auto) 10.8 % Eos % (Auto) 0.6 % Baso % (Auto) 0.4 % Neut # (Auto) 5.54 (1.40-6.50) K/uL Lymph # (Auto) 1.65 (1.20-3.40) K/uL Greenlee # (Auto) 0.88 H (0.11-0.59) K/uL Eos # (Auto) 0.05 (0.00-0.50) K/uL Baso # (Auto) 0.03 (0.00-0.20) K/uL Immature Gran # (Auto) 0.02 (0.01-0.20) K/uL Sodium 137 (136-145) mmol/L Potassium 4.0 (3.5-5.1) mmol/L Chloride 102 (98-107) mmol/L Carbon Dioxide 26 (21-32) mmol/L Anion Gap 9 (3-11) BUN 9 (6-23) mg/dl Creatinine 0.96 (0.6-1.4) mg/dl Est Cr Clr Drug Dosing 112.0 ml/min Est GFR ( Amer) 131.4 ml/min Est GFR (Non-Af Amer) 113.3 ml/min BUN/Creatinine Ratio 9.4 L (10-20) Glucose 93 (70-99(Fasting)) mg/dl Calcium 9.6 (8.6-10.3) mg/dl Total Bilirubin 1.3 H (0.2-1.0) mg/dl AST 13 (13-39) U/L ALT 10 (7-52) U/L Alkaline Phosphatase 73 (34-104) U/L Total Protein 8.0 (6.0-8.3) gm/dl Albumin 5.0 (3.4-5.0) gm/dl Globulin 3.0 (2.5-4.0) gm/dl Albumin/Globulin Ratio 1.7 (0.9-2) TSH 0.425 (0.300-4.500) uIu/ml Urine Color Yellow Urine Appearance Clear (Clear) Urine pH 7.0 (4.5-7.5) Ur Specific [place] 1.007 (1.000-1.030) Urine Protein Negative (Negative) Urine Glucose (UA) Negative (Negative) Urine Ketones 1+ H (Negative) Urine Blood Negative (Negative) Urine Nitrite Negative (Negative) Urine Bilirubin Negative (Negative) Urine Urobilinogen Negative (Negative) Ur Leukocyte Esterase Negative (Negative) Salicylates < 3.0 L (3.0-30) mg/dl Urine Opiates Screen Neg (Neg) Ur Methadone, Qual Neg (Neg) Acetaminophen < 3 L (10-30) ug/ml Urine Barbiturates Neg (Neg) Ur Phencyclidine (PCP) Neg (Neg) U Amphetamin/Meth Scrn Neg (Neg) MDMA (Ecstasy) Screen Neg (Neg) U Benzodiazepines Scrn Neg (Neg) Ur Cocaine Metabolite Neg (Neg) U Marijuana (THC) Screen Pos H (Neg) Ethyl Alcohol mg/dL < 10.0 (<10.0) mg/dl SARS-CoV-2, RNA, NAAT NEGATIVE (NEGATIVE) Discharge Plan Visit Data Chief Complaint: Mental Health Evaluation Stated Complaint: [facility] ED Provider: Andrew Yañez Discharge Problem: Suicidal thoughts Forms Stand Alone Forms: My [facility], Suicide Prevention Resources Prescriptions Prescriptions: No Action bupropion HCl 300 mg Tablet Extended Release 24 Hr PO citalopram 40 mg Tablet trazodone 50 mg Tablet citalopram 20 mg Tablet methylphenidate HCl [Concerta] 18 mg Tablet Extended Release 24hr PO dextroamphetamine-amphetamine [Adderall XR] 15 mg capsule,extended release 24hr PO Referrals Referrals: Brayan Blackwood, [Primary Care Provider] -
[2023-05-21 13:03] LABS: Basophils # (auto) 0.03 K/uL (0.00-0.20); Basophils % (auto) 0.4 %; Eosinophils # (auto) 0.05 K/uL (0.00-0.50); Eosinophils % (auto) 0.6 %; Hematocrit (blood only) 40.6 % (42.0-52.0); Hemoglobin 15.1 g/dl (14.0-18.0); Immature Granulocytes # (auto) 0.02 K/uL (0.01-0.20); Immature Granulocytes % (auto) 0.2 %; Lymphocytes # (auto) 1.65 K/uL (1.20-3.40); Lymphocytes % (auto) 20.2 %; Mean Corpuscular Hemoglobin 31.9 pg (25.0-34.0); Mean Corpuscular Hgb Conc 37.2 g/dL (32.0-36.0); Mean Corpuscular Volume 85.7 fL (80.0-100.0); Mean Platelet Volume 9.1 fL (9.4-12.4); Monocytes # (auto) 0.88 K/uL (0.11-0.59); Monocytes % (auto) 10.8 %; Neutrophils # (auto) 5.54 K/uL (1.40-6.50); Neutrophils % (auto) 67.8 %; Platelet Count 327 K/uL (130-400); RDW Coefficient of Variation 11.8 % (11.5-14.5); RDW Standard Deviation 36.9 fL (36.4-46.3); Red Blood Count 4.74 M/uL (4.70-6.10); White Blood Count 8.17 K/ul (4.8-10.8)
[2023-05-21 13:15] LABS: Appearance Urine Clear (Clear); Bilirubin Urine Negative (Negative); Blood Urine Negative (Negative); Color Urine Yellow; Glucose Urine UA Negative (Negative); Ketones Urine 1+ (Negative); Leukocyte Esterase Urine Negative (Negative); Nitrite Urine Negative (Negative); Protein Urine Negative (Negative); Specific Gravity Urine 1.007 (1.000-1.030); Urobilinogen Urine Negative (Negative)
[2023-05-21 13:16] LABS: Albumin Globulin Ratio 1.7 (0.9-2); BUN Creatinine Ratio 9.4 (10-20); Bilirubin,Total 1.3 mg/dl (0.2-1.0); Calcium 9.6 mg/dl (8.6-10.3); Est GFR (African American) 131.4 ml/min; Est GFR (Non-African American) 113.3 ml/min
[2023-05-21 13:22] LABS: Acetaminophen < 3 ug/ml (10-30); Salicylate < 3.0 mg/dl (3.0-30)
[2023-05-21 13:28] LABS: Thyroid Stimulating Hormone 0.425 uIu/ml (0.300-4.500)
[2023-05-21 13:42] LABS: Amphetamines+Metham, Urine Neg (Neg); Barbiturates, Urine Neg (Neg); Benzodiazepine, Urine Neg (Neg); Cocaine, Urine Neg (Neg); MDMA (Ecstacy), Urine Neg (Neg); Marijuana, Urine Pos (Neg); Methadone, Urine Neg (Neg); Opiate, Urine Neg (Neg); Phencyclidine, Urine Neg (Neg)
[2023-05-21] MEDS ORDERED: SODIUM CHLORIDE 0.65% NA SOLN 45 ML (OCEAN) PRN (17:47)
[2023-05-21] MEDS ORDERED: ALUMINUM/MAGNESIUM SUSP 30 ML UDC PO PRN (17:47)
[2023-05-21] MEDS ORDERED: hydrOXYzine HCl 25 MG TAB PO PRN (17:47)
[2023-05-21] MEDS ORDERED: MAGNESIUM HYDROXIDE SUSP 30 ML UDC PO PRN (17:47)
[2023-05-21] MEDS ORDERED: BISMUTH SUBSALICYLATE LIQD 236 ML PO PRN (17:47)
[2023-05-21] MEDS ORDERED: ACETAMINOPHEN 325 MG TAB PO PRN (17:47)
[2023-05-22] MEDS: buPROPion XL 300 MG TABCR PO SCH (08:59)
--- NOTE | 2023-05-22 10:46 | History & Physical ---
Date of Service May 22, 2023 Impression / Recommendations Impression 22 year old male with past psychiatric history of major depressive disorder who presented with increasing depresion and suicidal ideation. He also stated that he needed refills of his medication. (1) Moderately severe recurrent major depression: Plan Admit to inpatient unit. Re-start Wellbutrin. Patient knows that he will not be re-started on Trazodone so he can learn to manage his sleep cycle naturally. Participate in all milieu therapy. Suicide Risk Level Suicide Risk Level: Low (q15 min observation checks) Risk Factors Assessment Male: Yes : Yes Do You Have Access To A Gun?: No Previous Psychiatric Hospitalization: Yes Hopelessness: Yes Protective Factors Assessment Employed: Yes ([employer]) Psychiatric History Identifying Data NAYLA BURGESS is a 22-year-old M who currently lives alone, has a history of major depressive disorder and was admitted on 05/21/23 17:10 on a 201 voluntary for vague suicidal ideations . He also stated that he was out of his medication and hadn't been able to get it refilled. Chief Complaint "It's more than that". History of Present Illness Patient states that he has been mostly compliant with the outpatient treatment that he was provided on discharge. But he says that he came in because he is bored and hopeless that his life will ever get better. He says that he was very unhappy in his childhood. He says that he keeps having difficulties in accomplishing everything that he wants to do and he is tired of the struggle. He also says that when he voices his frustration, sadness, or other negative thoughts, his boss and his parents are always asking him if he wants to go to the hospital. He told me that he finally said that he wanted to go to the hospital to get them to stop bothering him. He says that is why the story he gave in the ED was very similar to the presentation that he gave in his previous visit approximately one month ago. At the time of my interview, the patient denied suicidal or homicidal ideation and showed no signs of salvador or psychosis. We did discuss at length the fact that his life as an adult is just starting out and he shouldn't compare his future to his past. He was very receptive to this discussion and I encouraged him to take advantage of the groups and milieu while he is here. I also discussed with him his medications and their l imitations. I told him that we would not be prescribing any sleep medications because I don't want him to get accustomed to taking pills for sleep. 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 Past Psychiatric History Previous Psych History: MDD Current Psychiatric Diagnosis: MDD, ADHD Outpatient Services: Patient has outpatient services that were set up after his previous hospitalizat ion. Previous Psych Admissions: recently seen here (approximately one month ago) Do You Have Access To A Gun?: No History of Previous Suicide Attempt: No Allergies Allergy/AdvReac Type Severity Reaction Status Date / Time No Known Allergies Allergy Unverified 12/29/16 16:30 Home Medications Medication Instructions Recorded Confirmed Type bupropion HCl 300 mg 24 hr tablet, 300 mg PO QAM 05/21/23 05/21/23 History extended release (Wellbutrin XL) trazodone 50 mg tablet 150 mg PO HS PRN Insomnia 05/21/23 05/21/23 History Family History Family History of: Depression Family Mental Health History Comment: mother bipolar, father is autistic, depression and anxiety on both side, siblings diagnosed with intermittent explosive disorder Alcohol History Hx of Alcohol Use Over the Past 12 Months: No AUDIT Total Score: 3 Smoking Use Have You Smoked or Used Tobacco Products in the Last 30 Days: Yes tobacco type: cigarettes Smoking Status: Current some day smoker Smoking packs per day: 0 Substance History Hx of Prescription Med Misuse Over the Past 12 Months: No Hx of Over the Counter Med Misuse Over the Past 12 Months: No Hx of Inhalent Misuse Over the Past 12 Months: No Hx of Organic Substance Use Over the Past 12 Months: Yes (Marijuana) Hx of Illegal Substances/Street Drug Use Over Past 12 Months: No Problems as a Result of Past Substance Use: None Identified Personal History Living Arrangements: Apartment Highest Grade Completed: High School Graduate Marital Status: Single Number Of Children: 0 Beliefs That Will Affect Care: None Patient History Medical History (Updated 05/21/23 @ 16:58 by Andrew Yañez DO) ADHD (attention deficit hyperactivity disorder) Suicidal ideation Moderately severe recurrent major depression Social History Smoking Status: Current some day smoker Preferred Language: Latvian Communication Ability: Effective Emu Farmer Required: No Beliefs That Will Affect Care: None Feels Safe at Home: Yes Gender Identity: Male Assistive Devices: Glasses Physical Exam Psychiatric: A+Ox3, euthymic affect Orientation: alert, oriented x 3 and cooperative Apperance: appropriately dressed, appropriately groomed and appeared stated age Eye Contact: good eye contact Motor Behavior: steady gait and station and no abnormal motor movements Speech: normal rate/rhythm/volume of speech Affect: euthymic affect Mood: + dysphoric mood Thought Process: goal directed thought process, linear/logical thought process and clear/coherent thought process Thought Content: reality based without delusions Suicidal Thoughts: denies suicidal thoughts, denies suicidal plan and denies suicidal intent Homicidal Thoughts: denies homicidal thoughts, denies homicidal plan and denies homicidal intent Hallucinations: no auditory hallucinations and no visual hallucinations Cognition: recent memory grossly intact, remote memory grossly intact, attention grossly intact and language grossly intact Estimated Intelligence: average estimated in telligence Insight: good insight Judgment: + fair judgement Vital Signs (Past 24 Hours): Last Vital Signs Temp 36.9 C 05/22/23 06:00 Pulse 70 05/22/23 06:00 Resp 16 05/22/23 06:00 BP 111/72 05/22/23 06:00 Pulse Ox 99 05/22/23 06:00 O2 Del Method Room Air 05/22/23 06:00 Physical Examination: A physical exam was performed in the ER prior to admission to the unit by the ED Doc. I accept that physical as correct/medical clearance for the inpatient physical exam. Results & Data ([facility]) Laboratory Results Laboratory Results - last 24 hr 05/21/23 05/21/23 12:32 14:30 WBC 8.17 RBC 4.74 Hgb 15.1 Hct 40.6 L MCV 85.7 MCH 31.9 MCHC 37.2 H RDW Std Deviation 36.9 RDW Coeff of Krupa 11.8 Plt Count 327 MPV 9.1 L Immature Gran % (Auto) 0.2 Neut % (Auto) 67.8 Lymph % (Auto) 20.2 Cocke % (Auto) 10.8 Eos % (Auto) 0.6 Baso % (Auto) 0.4 Neut # (Auto) 5.54 Lymph # (Auto) 1.65 Cocke # (Auto) 0.88 H Eos # (Auto) 0.05 Baso # (Auto) 0.03 Immature Gran # (Auto) 0.02 Sodium 137 Potassium 4.0 Chloride 102 Carbon Dioxide 26 Anion Gap 9 BUN 9 Creatinine 0.96 Est Cr Clr Drug Dosing 112.0 Est GFR ( Amer) 131.4 Est GFR (Non-Af Amer) 113.3 BUN/Creatinine Ratio 9.4 L Glucose 93 Calcium 9.6 Total Bilirubin 1.3 H AST 13 ALT 10 Alkaline Phosphatase 73 Total Protein 8.0 Albumin 5.0 Globulin 3.0 Albumin/Globulin Ratio 1.7 TSH 0.425 Urine Color Yellow Urine Appearance Clear Urine pH 7.0 Ur Specific Wilson 1.007 Urine Protein Negative Urine Glucose (UA) Negative Urine Ketones 1+ H Urine Blood Negative Urine Nitrite Negative Urine Bilirubin Negative Urine Urobilinogen Negative Ur Leukocyte Esterase Negative Salicylates < 3.0 L Urine Opiates Screen Neg Ur Methadone, Qual Neg Acetaminophen < 3 L Urine Barbiturates Neg Ur Phencyclidine (PCP) Neg U Amphetamin/Meth Scrn Neg MDMA (Ecstasy) Screen Neg U Benzodiazepines Scrn Neg Ur Cocaine Metabolite Neg U Marijuana (THC) Screen Pos H U Marijuana THC Carboxy Pending Drug Screen Comment Pending Ethyl Alcohol mg/dL < 10.0 SARS-CoV-2, RNA, NAAT NEGATIVE Current Inpatient Medications Current Inpatient Medications: Current Inpatient Medications Acetaminophen (Acetaminophen 325 Mg Tab) 650 mg PO Q4H PRN PRN Reason: Headache or Minor Fever Stop: 06/20/23 17:46 Al Hydrox/Mg Hydrox/Simethicone (Aluminum/Magnesium Susp 30 Ml Udc) 30 ml PO Q4H PRN PRN Reason: GI Upset Stop: 06/20/23 17:46 Bismuth Subsalicylate (Bismuth Subsalicylate Liqd 236 Ml) 15 ml PO PRN PRN PRN Reason: Loose Stool Stop: 06/20/23 17:46 Bupropion HCl (Bupropion Xl 300 Mg Tabcr) 300 mg PO QAM CORRINA Stop: 06/21/23 08:59 Last Admin: 05/22/23 08:59 Dose: 300 mg Hydroxyzine HCl (Hydroxyzine Hcl 25 Mg Tab) 50 mg PO HSZ PRN PRN Reason: Insomnia Stop: 06/20/23 17:46 Hydroxyzine HCl (Hydroxyzine Hcl 25 Mg Tab) 25 mg PO Q4H PRN PRN Reason: Anxiety Stop: 06/20/23 17:46 Magnesium Hydroxide (Magnesium Hydroxide Susp 30 Ml Udc) 30 ml PO DAILY PRN PRN Reason: Constipation Stop: 06/20/23 17:46 Sodium Chloride (Sodium Chloride 0.65% Na Soln 45 Ml ([place])) 1 - 2 sprays NA PRN PRN PRN Reason: Nasal Dryness/Congestion Stop: 06/20/23 17:46
[2023-05-22] MEDS: hydrOXYzine HCl 25 MG TAB PO PRN (22:52)
--- NOTE | 2023-05-23 11:19 | Discharge Summary ---
Date of Service May 23, 2023 History of Present Illness Patient states that he has been mostly compliant with the outpatient treatment that he was provided on discharge. But he says that he came in because he is bored and hopeless that his life will ever get better. He says that he was very unhappy in his childhood. He says that he keeps having difficulties in accomplishing everything that he wants to do and he is tired of the struggle. He also says that when he voices his frustration, sadness, or other negative thoughts, his boss and his parents are always asking him if he wants to go to the hospital. He told me that he finally said that he wanted to go to the hospital to get them to stop bothering him. He says that is why the story he gave in the ED was very similar to the presentation that he gave in his previous visit approximately one month ago. At the time of my interview, the patient denied suicidal or homicidal ideation and showed no signs of salvador or psychosis. We did discuss at length the fact that his life as an adult is just starting out and he shouldn't compare his future to his past. He was very receptive to this discussion and I encouraged him to take advantage of the groups and milieu while he is here. I also discussed with him his medications and their limitations. I told him that we would not be prescribing any sleep medications because I don't want him to get accustomed to taking pills for sleep. 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 Physical Exam Psychiatric A+Ox3, euthymic affect Orientation: alert, oriented x 3 and cooperative Apperance: appropriately dressed, appropriately groomed and appeared stated age Eye Contact: good eye contact Motor Behavior: steady gait and station and no abnormal motor movements Speech: normal rate/rhythm/volume of speech Affect: euthymic affect Mood: + anxious mood; no depressed mood, no irritable mood and no angry mood Thought Process: goal directed thought process, linear/logical thought process and clear/coherent thought process Thought Content: reality based without delusions Suicidal Thoughts: denies suicidal thoughts, denies suicidal plan and denies suicidal intent Homicidal Thoughts: denies homicidal thoughts, denies homicidal plan and denies homicidal intent Hallucinations: no auditory hallucinations and no visual hallucinations Cognition: recent memory grossly intact, remote memory grossly intact, attention grossly intact and language grossly intact Estimated Intelligence: average estimated intelligence Insight: good insight Judgment: good judgement Vital Signs (Past 24 Hours) Last Vital Signs Temp 36.7 C 05/23/23 06:28 Pulse 91 H 05/23/23 06:29 Resp 16 05/23/23 06:28 BP 102/64 05/23/23 06:29 Pulse Ox 99 05/22/23 06:00 O2 Del Method Room Air 05/22/23 06:00 A physical exam was performed in the ER prior to admission to the unit by the ED Doc. I accept that physical as correct/medical clearance for the inpatient physical exam. Principal Diagnosis Major depressive disorder, recurrent, moderate Psychiatric Data See daily stay summary. In short, safety was maintained and the patient was cooperative with care. Medication changes included restarting him on his Wel lbutrin and he tolerated this well. A family session was not held because he declined. However a safety plan was completed prior to discharge. Day of Discharge Assessment Today the patient voices readiness for discharge. They note improvement in mood and deny thoughts to harm self or others. Thoughts remain organized and they are improved from admission. There is no evidence of psychosis. They agree to take mediations as prescribed and keep follow-up appointments. They are stable for discharge to outpatient level of care. He knows that he has to change his living situation because this is causing him much of his distress. Transition of Care Transition Of Care Record: was reviewed with the patient Advance Directives Advance Directives Information Provided: Yes Advance Directives: No Mental Health Advance Directive: No Advance Directives on File: No Living Will: No Power of Paper Finisher: No Advance Directives Reason:: Declines as Mental Health Visit. Risk Factors Assessment Male: Yes : Yes Do You Have Access To A Gun?: No Previous Psychiatric Hospitalization: Yes Hopelessness: Yes Protective Factors Assessment Employed: Yes ([employer]) Discharge Data Lab Results 05/21/23 05/21/23 12:32 14:30 WBC 8.17 RBC 4.74 Hgb 15.1 Hct 40.6 L MCV 85.7 MCH 31.9 MCHC 37.2 H RDW Std Deviation 36.9 RDW Coeff of Krupa 11.8 Plt Count 327 MPV 9.1 L Immature Gran % (Auto) 0.2 Neut % (Auto) 67.8 Lymph % (Auto) 20.2 Elliott % (Auto) 10.8 Eos % (Auto) 0.6 Baso % (Auto) 0.4 Neut # (Auto) 5.54 Lymph # (Auto) 1.65 Elliott # (Auto) 0.88 H Eos # (Auto) 0.05 Baso # (Auto) 0.03 Immature Gran # (Auto) 0.02 Sodium 137 Potassium 4.0 Chloride 102 Carbon Dioxide 26 Anion Gap 9 BUN 9 Creatinine 0.96 Est Cr Clr Drug Dosing 112.0 Est GFR ( Amer) 131.4 Est GFR (Non-Af Amer) 113.3 BUN/Creatinine Ratio 9.4 L Glucose 93 Calcium 9.6 Total Bilirubin 1.3 H AST 13 ALT 10 Alkaline Phosphatase 73 Total Protein 8.0 Albumin 5.0 Globulin 3.0 Albumin/Globulin Ratio 1.7 TSH 0.425 Urine Color Yellow Urine Appearance Clear Urine pH 7.0 Ur Specific [place] 1.007 Urine Protein Negative Urine Glucose (UA) Negative Urine Ketones 1+ H Urine Blood Negative Urine Nitrite Negative Urine Bilirubin Negative Urine Urobilinogen Negative Ur Leukocyte Esterase Negative Salicylates < 3.0 L Urine Opiates Screen Neg Ur Methadone, Qual Neg Acetaminophen < 3 L Urine Barbiturates Neg Ur Phencyclidine (PCP) Neg U Amphetamin/Meth Scrn Neg MDMA (Ecstasy) Screen Neg U Benzodiazepines Scrn Neg Ur Cocaine Metabolite Neg U Marijuana (THC) Screen Pos H Ethyl Alcohol mg/dL < 10.0 SARS-CoV-2, RNA, NAAT NEGATIVE Hospital Course (1) Moderately severe recurrent major depression: Patient has been restarted on his Wellbutrin and knows that he has an appointment next week with his prescriber. Many of the causes of his depressive thoughts are due to his relationship and living situation and he knows the only way to alleviate those are to change his living situation. Patient is going to also have a prescription for Vistaril to help him sleep. He knows he will only get 7 pills because it is to be used sparingly, only as needed. He knows that a 22 year old person should not be using pills to sleep. Plan 05/23/23 Patient is back to his baseline and knows that he needs to deal with the stressors in his life. These are causing his negative emotions and will not be cured by medication. Admit to inpatient unit. Re-start Wellbutrin. Patient knows that he will not be re-started on Trazodone so he can learn to manage his sleep cycle naturally. Participate in all milieu therapy. Mental Health & Subst Abuse Tx Psychiatrist Name of Psychiatrist: n/a Therapist Name of Therapist: [facility] - new intake Therapist's Date of Therapist Appointment: 05/29/23 Time of Therapist Appointment: 2:00 PM Therapy Appointment Comment: Virtual Color Coater Name of Color Coater: None Post Discharge Appointments Primary Care Physician Name Of Family Doctor/PCP: [address] [place] [address] - Dr. Brayan Blackwood Primary Care Date of Future Appointment with PCP: 05/26/23 Time of Appointment with PCP: 1:15 PM Provider Appointment Comment: [facility] [id number] Contact Information Discharge Discharge Address: [address] [place] [address] Discharge Plan Discharge Items Patient Disposition: Home - Self-Care Reason For Visit: SUICIDAL IDEATION Discharge Diagnosis: major depressive disorder, recurrent, severe Condition on Discharge: Good Activity: Resume your previous activity Non-emergency contact: Primary Care Provider Call non-emergency contact if: you have any medication questions and your symptoms worsen Follow-up/Referrals: Brayan Blackwood, [Primary Care Provider] - Diet: Regular Addtl Attending Provider Instructions: SPECIAL CARE INSTRUCTIONS: 1. Follow through with your scheduled aftercare appointments. If unable to keep an appointment, please call to reschedule. 2. Take your medication only as prescribed. Medication should not be changed or stopped without the approval of your doctor. In the event of worsening symptoms or concerns about side effects, contact your doctor immediately. 3. Utilize new healthy coping skills, anger management skills, and stress management skills learned during your hospitalization. Journal feelings and process them with a support person. Identify stressors or situations that may result in relapse, deterioration or inappropriate behaviors and develop a plan to deal with those issues. 4. If your coping skills are ineffective and you are in crisis, contact your outpatient providers for direction. If unable to reach your providers, please call the [facility] CRISIS LINE AT , go to the [facility] walk-in center at [address], [address], [place], or go to the closest Emergency Room. 5. Avoid alcohol and un-prescribed drugs. 6. You have been provided with the Mental Health Advance Directives Pamphlet for your review. 7. Your condition is stable for discharge to outpatient level of care, but recovery is an ongoing process. Ifthoughts to harm yourself or others return, follow the safety plan developed during your stay. Planning for a safe return home includes securing weapons. Our treatment team recommends weaponsbe removed from the home until your outpatient provider reassesses your progress. In rare cases where the items themselvescannot be removed, guns and ammunitionshould be secured separatelyand keys stored by a reliable personoutside of the home. If you were admitted on an involuntary commitment, the police or other legal authorities may be involved in this process. AFTERCARE APPOINTMENTS: * Please call your insurance company prior to your scheduled appointment to confirm your aftercare providers are covered. Take your insurance information to your appointments. WHO TO CALL AND WHEN: Medical Emergencies: For questions or emergencies related to your hospital stay, please contact the Inpatient Behavioral Health Unit at [phone]. A ocean biologist is on-call 30/09 for the Behavioral Health Unit for emergencies At any time you feel your situation is an emergency, you may also call 911 immediately. Pending Studies at Discharge: No Stand-Alone Forms: My [facility], Smoking Cessation Medications and DC Order Prescriptions: New hydroxyzine HCl 25 mg Tablet 50 mg PO HSZ PRN (Reason: insomnia) Qty: 7 0RF bupropion HCl 300 mg Tablet Extended Release 24 Hr 300 mg PO QAM Qty: 30 0RF Discontinued trazodone 50 mg Tablet 150 mg PO HS PRN (Reason: Insomnia) bupropion HCl [Wellbutrin XL] 300 mg Tablet Extended Release 24 Hr 300 mg PO QAM Discharge Orders: Discharge Order (Routine); Ordered 05/23/23 Ordered By: Ekaterina Wray Admission Data Admit Date/Time: 05/21/23 17:10 Attending Provider: Ekaterina Wray Admit Provider: Ekaterina Wray Primary Care Provider: Brayan Blackwood C[place] [address] D/C day mgmt 30 min or < Patient Type Established History Expanded Problem Focused Medical Decision Making Low Complexity Diagnoses Moderately severe recurrent major depression F33.2 Time Spent (min) 25
[2023-05-24 13:17] LABS: Marijuana Quant, GCMS Urine 478 ng/mL (<5)
== END 2023-05-23 12:40 | disposition home or self-care (01) | DRG 885 ==
LOC: ED 12:10 → 3S 17:00